=== PATIENT | female | born 1990 | race African-American/Black ===

== ENCOUNTER 2017-04-21 04:34 | Inpatient (IN) | payer BC, MEDICAID, OTHER ==
[~2017-04-21] VITALS: Ht 162.6 cm; Wt 132.0 kg
[2017-04-21 05:31] LABS: AMNI OBC PASS; AMNISURE POSITIVE (NEGATIVE)
[2017-04-21] MEDS ORDERED: D5%-LACTATED RINGERS 1,000 ML IV SCH (05:42)
[2017-04-21] MEDS ORDERED: OXYTOCIN 30U/ 0.9% NaCL 500ML 500 ML IV PRN (05:42)
[2017-04-21] MEDS ORDERED: OXYTOCIN 30U/ 0.9% NaCL 500ML 500 ML IV ONE (05:42)
[2017-04-21] MEDS ORDERED: OXYTOCIN 30U/ 0.9% NaCL 500ML 500 ML ONE ×2 (05:52→23:49)
[2017-04-21] MEDS ORDERED: NEWBORN KIT ONE (05:52)
[2017-04-21] MEDS ORDERED: LIDOCAINE 1%, 20ML ONE (05:52)
[2017-04-21] MEDS ORDERED: MISOPROSTOL 200 MCG TABLET ONE (05:52)
[2017-04-21] MEDS ORDERED: ALUMINUM/MAG/SIMETHICONE 30 ML UDC PO PRN (06:00)
[2017-04-21] MEDS ORDERED: SODIUM CITRATE/CITRIC ACID 30 ML UDC PO PRN (06:00)
[2017-04-21] MEDS ORDERED: CALCIUM CARBONATE 500 MG TAB.CHEW PO PRN (06:00)
[2017-04-21] MEDS ORDERED: ONDANSETRON 2MG/ML, 2ML IVPush PRN (06:00)
[2017-04-21 06:13] LABS: HEMATOCRIT 42.2 % (34.6-47.8); HEMOGLOBIN 13.7 g/dL (11.7-16.4); WHITE BLOOD COUNT 11.6 x10^3/uL (3.4-10)
[2017-04-21] MEDS ORDERED: CLINDAMYCIN PMX 900MG/50ML 50 ML ONE ×3 (06:29→22:04)
[2017-04-21] MEDS: LACTATED RINGERS 1,000 ML IV SCH ×5 (06:34→17:09)
[2017-04-21] MEDS: CLINDAMYCIN PMX 900MG/50ML 50 ML IVPB SCH ×3 (06:34→22:06)
[2017-04-21] MEDS ORDERED: FENTANYL PF 100 MCG/2ML ONE ×3 (09:43→13:46)
[2017-04-21] MEDS: FENTANYL PF 100 MCG/2ML IVPush PRN ×3 (09:45→13:47)
[2017-04-21] MEDS ORDERED: ONDANSETRON 2MG/ML, 2ML ONE (10:14)
[2017-04-21] MEDS ORDERED: FENTANYL/BUPIV./NS/PF 250 ML EPIDCONT ONE (13:42)
[2017-04-21] MEDS ORDERED: LIDOCAINE/PF 1.5%-EPI 1:200K, 30ML ONE (14:38)
[2017-04-21] MEDS ORDERED: BUPIVACAINE 0.25% ONE (14:38)
[2017-04-21] MEDS ORDERED: FENTANYL/BUPIV./NS/PF 250 ML EPIDCONT SCH (17:09)
[2017-04-21] MEDS ORDERED: LACTATED RINGERS 1,000 ML IVBOLUS PRN (17:30)
[2017-04-21] MEDS ORDERED: METHYLERGONOVINE 0.2 MG/ML IM ONE (23:29)
[2017-04-21] MEDS: OXYTOCIN 30U/ 0.9% NaCL 500ML 500 ML IV SCH (23:59)
[2017-04-22] MEDS ORDERED: DOCUSATE 100 MG CAPSULE PO PRN
[2017-04-22] MEDS ORDERED: METHYLERGONOVINE 0.2 MG/ML IM ONE
[2017-04-22] MEDS: LACTATED RINGERS 1,000 ML IV SCH ×3 (01:09→21:42)
[2017-04-22] MEDS ORDERED: IBUPROFEN 600 MG TABLET ONE (01:51)
[2017-04-22] MEDS: IBUPROFEN 600 MG TABLET PO PRN ×3 (01:53→21:17)
[2017-04-22 02:45] VITALS: BP 124/60
[2017-04-22 04:20] VITALS: BP 135/63
[2017-04-22 07:26] VITALS: BP 117/61
[2017-04-22] MEDS ORDERED: PRENATAL VIT/IRON/FA 1 EACH TABLET ONE (07:28)
[2017-04-22 07:31] LABS: HEMATOCRIT 33.8 % (34.6-47.8); WHITE BLOOD COUNT 22.9 x10^3/uL (3.4-10)
[2017-04-22] MEDS ORDERED: PRENATAL VIT/IRON/FA 1 EACH TABLET PO SCH (09:00)
[2017-04-22] MEDS: OXYTOCIN 30U/ 0.9% NaCL 500ML 500 ML IV SCH ×2 (09:59→22:00)
[2017-04-22 13:01] VITALS: BP 141/81
[2017-04-22 16:10] VITALS: BP 142/78
[2017-04-22 19:45] VITALS: BP 124/72
[2017-04-22] MEDS ORDERED: MAGNESIUM HYDROXIDE 8%, 30ML UDC PO PRN ×2 (22:00)
[2017-04-22] MEDS ORDERED: OXYcodone/APAP 5/325MG TABLET PO PRN ×4 (22:00)
[2017-04-22] MEDS ORDERED: ONDANSETRON 2MG/ML, 2ML IV PRN ×2 (22:00)
[2017-04-22] MEDS ORDERED: ACETAMINOPHEN 325 MG TABLET PO PRN ×2 (22:00)
[2017-04-23] MEDS: IBUPROFEN 600 MG TABLET PO PRN ×2 (04:32→17:47)
[2017-04-23] MEDS: LACTATED RINGERS 1,000 ML IV SCH ×2 (05:42→13:42)
[2017-04-23 06:10] LABS: HEMATOCRIT 30.5 % (34.6-47.8); HEMOGLOBIN 9.9 g/dL (11.7-16.4); WHITE BLOOD COUNT 15.3 x10^3/uL (3.4-10)
[2017-04-23] MEDS: OXYTOCIN 30U/ 0.9% NaCL 500ML 500 ML IV SCH (07:40)
[2017-04-23] MEDS ORDERED: PRENATAL VIT/IRON/FA 1 EACH TABLET ONE (07:41)
[2017-04-23 07:50] VITALS: BP 129/72
[2017-04-23] MEDS ORDERED: PRENATAL VIT/IRON/FA 1 EACH TABLET PO SCH (09:00)
[2017-04-23] MEDS ORDERED: FERR325T10 PO (10:07)
[2017-04-23] MEDS ORDERED: IBUP800T PO (10:07)
[2017-04-23] MEDS ORDERED: MEASLES,MUMPS&RUBELLA VACC/PF 0.5 ML SQ-VACC ONE ×2 (12:35→13:00)
[2017-04-23] MEDS ORDERED: FERROUS GLUCONATE 324 MG TABLET PO SCH (17:00)
== END 2017-04-23 19:00 | disposition home or self-care (01) | DRG 774 ==
LOC: LDOP 04:34 → LDIP 05:41 → 2NW 04-22 02:23
PROVIDERS: ADMIT Obstetrics & Gynecology; ATTEND Obstetrics & Gynecology
PROC: 10E0XZZ Delivery of Products of Conception, External Approach (ICD-10-PCS; principal; 2017-04-22)
PROC: 0KQM0ZZ Repair Perineum Muscle, Open Approach (ICD-10-PCS; 2017-04-22)
PROC: 0W8NXZZ Division of Female Perineum, External Approach (ICD-10-PCS; 2017-04-22)
PROC: 3E0S3CZ (ICD-10-PCS; 2017-04-22)
PROC: 00HU33Z Insertion of Infusion Device into Spinal Canal, Percutaneous Approach (ICD-10-PCS; 2017-04-22)
DX: O99.824 Streptococcus B carrier state complicating childbirth (principal); O72.1 Other immediate postpartum hemorrhage; D62 Acute posthemorrhagic anemia; Z37.0 Single live birth; O99.214 Obesity complicating childbirth; Z3A.38 38 weeks gestation of pregnancy; Z88.0 Allergy status to penicillin; O99.02 Anemia complicating childbirth; E66.01 Morbid (severe) obesity due to excess calories; O71.4 Obstetric high vaginal laceration alone; O76 Abnormality in fetal heart rate and rhythm complicating labor and delivery
CPT/HCPCS: 36415; 82803; 84112; 85025; 86850; 86900; J2405; J3010; J3490; J2590; J7120; J7121

== ENCOUNTER 2018-02-15 14:21 | Day surgery (SDC) | payer BC, OTHER ==
[2018-02-14 11:57] VITALS: BP 132/85
[~2018-02-15] VITALS: Ht 162.6 cm; Wt 125.1 kg
[~2018-02-15 14:21] MED LIST: FERR-51 PO; IBUP-1223 PO; None per pt
[2018-02-15] MEDS ORDERED: ACETAMINOPHEN 500 MG TABLET ONE (14:55)
[2018-02-15] MEDS ORDERED: OxyconTIN ER 10 MG TAB.ER ONE (14:55)
[2018-02-15] MEDS ORDERED: GABAPENTIN 300 MG CAPSULE ONE (14:55)
[2018-02-15] MEDS ORDERED: BUPIVACAINE/PF 0.25% ONE (14:57)
[2018-02-15 14:59] LABS: HCG UR SG 1.028 (1.003-1.030)
[2018-02-15] MEDS ORDERED: FENTANYL PF 100 MCG/2ML ONE (14:59)
[2018-02-15] MEDS ORDERED: MIDAZOLAM 1 MG/ML, 2ML ONE (14:59)
[2018-02-15] MEDS ORDERED: SUCCINYLCHOLINE 20 MG/ML, 10ML ONE (15:00)
[2018-02-15] MEDS: OxyconTIN ER 10 MG TAB.ER PO ONE (15:00)
[2018-02-15] MEDS: ACETAMINOPHEN 500 MG TABLET PO ONE (15:00)
[2018-02-15] MEDS ORDERED: DEXAMETHASONE 4 MG/ML, 1ML ONE (15:00)
[2018-02-15] MEDS: GABAPENTIN 300 MG CAPSULE PO ONE (15:00)
[2018-02-15] MEDS ORDERED: PROPOFOL 10 MG/ML, 20ML ONE (15:00)
[2018-02-15] MEDS: LACTATED RINGERS 1,000 ML IV SCH (15:01)
[2018-02-15] MEDS ORDERED: CEFAZOLIN 1,000 MG ONE ×2 (15:29)
[2018-02-15] MEDS: BUPIVACAINE/PF 0.25% INFIL ONE (15:42)
== END 2018-02-15 17:20 | disposition home or self-care (01) ==
LOC: STAR 14:21
PROVIDERS: ATTEND Specialist
DX: D17.79 Benign lipomatous neoplasm of other sites (principal); Z88.8 Allergy status to other drugs, medicaments and biological substances
CPT/HCPCS: 27337; 81025; 88305; J0330; J0690; J1100; J2250; J2704; J3010; J3490; J7120